=== PATIENT | female | born 1995 | race Caucasian/White ===

== ENCOUNTER 2023-12-27 15:52 | Emergency (ER) | payer OTHER, SELFPAY ==
[2023-12-27 16:16] VITALS: BP 127/82; PULSE 72; RESP 18; TEMP 37.1; O2SAT 100; BMI 21.8
--- NOTE | 2023-12-27 16:36 | CRLHL7_ITS ---
For Patients: As a result of the Century Cures Act, medical imaging exams and procedure reports are released immediately into your electronic medical record. You may view this report before your referring provider. If you have questions, please contact your health care provider. INDICATION: Vaginal bleeding in the setting of . COMPARISON: None available. TECHNIQUE: Grayscale pelvic ultrasound via an endovaginal approach. FINDINGS: Gestational sac and number: 1 Sac size and shape: Oval-shaped. The sac is located in the lower uterine segment posteriorly. No perigestational hemorrhage. MSD is 0.5 cm. Placenta: Not yet developed. Yolk sac: Present. Amniotic fluid: Subjectively normal. No pole is identifiable at this time. US EGA: 5 weeks 2 days US CAROLYNN: 08/26/2024 LMP CAROLYNN: 08/20/2024 Uterus: No significant uterine findings. Right ovary: Normal. Left ovary: Normal. IMPRESSION: Intrauterine gestational sac located in the lower uterine segment without yolk sac or embryonic pole visible at this time. Findings are consistent with an intrauterine of uncertain viability. Serial beta HCG and short interval follow-up ultrasound in 7-14 days are recommended. Dictated by Leonard Fagan MD @ 12/27/2023 6:00:52 PM (Electronically Signed)
--- NOTE | 2023-12-27 18:00 | ED.PREGNANCY ---
HPI - General Time Seen by Provider: 18:00 Date Seen: 12/27/23 Chief complaint: Vaginal Bleeding Stated complaint: 6 week , bleeding (clots), back pain Time Seen by Provider: 12/27/23 17:19 Source: patient, RN notes reviewed and old records reviewed Mode of arrival: ambulatory Limitations: no limitations History of Present Illness HPI Narrative: Wendi is a very pleasant 28-year-old with history of normal who comes to the emergency room today with vaginal bleeding at 6 weeks 1 day of . She notes that this morning after urinating she had some blood when she wiped. Throughout the day she started passing clots. She has a lower pelvic cramping with radiation to her back. She has not had any vomiting lightheadedness chest pain or fevers. Her 1st was uncomplicated. She did receive broke g as she is blood type O negative. She does not know her alan's blood type. She lives in [place] but grew up in the [facility] and thus comes in our to the [facility] for care. Related Data Home Medications ?Medication ?Instructions ?Recorded ?Confirmed 12/27/23 Allergies Allergy/AdvReac Type Severity Reaction Status Date / Time amoxicillin [From Augmentin] Allergy Intermediate Unknown Verified 06/17/23 09:46 clavulanic acid Allergy Intermediate Unknown Verified 06/17/23 09:46 [From Augmentin] cat dander Allergy Unknown Unknown Verified 06/17/23 09:46 house dust Allergy Unknown Unknown Verified 06/17/23 09:46 mold Allergy Unknown Unknown Verified 06/17/23 09:46 ragweed pollen Allergy Unknown Unknown Verified 06/17/23 09:46 Review of Systems Status of ROS: Reports: 6 or more systems reviewed and unremarkable except as noted in History and below [facility] Medical History Anal fissure ?K60.2 - Anal fissure, unspecified (ICD-10) Recurrent vaginitis ?N76.0 - Acute vaginitis (ICD-10) Environmental allergies ?Z91.09 - Other allergy status, other than to drugs and biological substances (ICD-10) Anxiety and depression ?F41.9 - Anxiety disorder, unspecified (ICD-10) ?F32.A - Depression, unspecified (ICD-10) Acne ?L70.9 - Acne, unspecified (ICD-10) Surgical History (normal spontaneous vaginal delivery) ?O80 - Encounter for full-term uncomplicated delivery (ICD-10) History of tonsillectomy and adenoidectomy (1998) ?Z90.89 - Acquired absence of other organs (ICD-10) Family History Maternal Grandmother Colon cancer, Onset Age: 60 Paternal Grandmother Breast cancer, Onset Age: 65 Mother Anxiety disorder Aunt Uterine cancer Social History Narrative: 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 No acute distress. Clearly sad. Heart with regular rate and rhythm and lungs are clear to auscultation. Abdomen is soft nontender. Lower extremities without edema. Moving all extremities. Const: Vital Signs, click to edit/add: Vital Signs - 24 hr 12/27/23 16:16 12/27/23 19:29 Temperature 98.7 F Pulse Rate [Pulse Oximeter] 72 65 Respiratory Rate 18 18 Blood Pressure [Ri ght Upper Arm] 127/82 124/77 Pulse Oximetry 100 100 Oxygen Delivery Me thod Room Air Room Air Documenting provider has reviewed patient's vital signs: yes Course Course ED Course: At this time patient has already had an ultrasound and the gestational sac is located in the lower uterine segment. This is a of uncertain status. Will add CBC, chemistry panel, quantitative hCG to the labs. Plan on talking to OB in regards to [facility] which is currently involved in a eller boyd shortage. Reevaluation(s) Reevaluation #1: I had the pleasure of speaking with Dr. Clement who does suggest RhoGAM. Her this is ordered via pharmacy. Vital Signs Vital signs: Initial Vital Signs Temperature 98.7 F 12/27/23 16:16 Temperature Source Temporal Artery Scan 12/27/23 16:16 Pulse Rate 72 12/27/23 16:16 Respiratory Rate 18 12/27/23 16:16 Blood Pressure 127/82 12/27/23 16:16 Blood Pressure Mean 97 12/27/23 16:16 Blood Pressure Position Sitting 12/27/23 16:16 Pulse Oximetry 100 12/27/23 16:16 Oxygen Delivery Method Room Air 12/27/23 16:16 Vital Signs Temperature 98.7 F 12/27/23 16:16 Pulse Rate 72 12/27/23 16:16 Respiratory Rate 18 12/27/23 16:16 Blood Pressure 127/82 12/27/23 16:16 Pulse Oximetry 100 12/27/23 16:16 Oxygen Delivery Method Room Air 12/27/23 16:16 Temperature 98.7 F 12/27/23 16:16 Pulse Rate 65 12/27/23 19:29 Respiratory Rate 18 12/27/23 19:29 Blood Pressure 124/77 12/27/23 19:29 Pulse Oximetry 100 12/27/23 19:29 Oxygen Delivery Method Room Air 12/27/23 19:29 MDM - OB/Uterine Contractions MDM Narrative Medical decision making narrative: 1. Threatened miscarriage-her at this time gestational sac is located in the in the lower uterine segment. HCG done today which is 2. Disposition-home at this time. Miscarriage may occur. Seek medical attention for significant bleeding, lightheadedness, fever, chest pain and as needed. Follow-up with OBGYN this week for repeat hCG. Return to the emergency room as needed. Addendum: White count elevated 11.47 likely consistent with . Basic panel within normal limits. HCG 405.21. Medical Records Attestation: I reviewed the patient's medical records. Lab Data Attestation: I reviewed the patient's lab results. Labs: Lab Results 12/27/23 Range/Units 18:25 WBC 11.47 H (4.50-11.00) K/uL RBC 4.68 (4.00-5.20) m/uL Hgb 13.2 (12.0-16.0) gm/dL Hct 40.5 (33.0-51.0) % MCV 87 (80-100) fL MCH 28 (26-34) pg MCHC 33 (32-36) gm/dL RDW Coeff of Sher 11.6 (11.5-15.5) % Plt Count 309 (140-440) K/uL Neut % (Auto) 67.1 (42.0-72.0) % Lymph % (Auto) 22.5 (20-44) % [place] % (Auto) 7.2 (0.0-11.0) % Eos % (Auto) 1.6 (0.0-7.0) % Baso % (Auto) 0.7 (0.0-3.0) % Neut # (Auto) 7.70 H (1.7-7.0) K/uL Lymph # (Auto) 2.60 (0.90-2.90) K/uL [place] # (Auto) 0.80 (0.00-0.90) K/UL Eos # (Auto) 0.20 (0.00-0.50) K/uL Baso # (Auto) 0.10 (0.00-0.30) K/uL Abs Immat Gran (auto) 0.10 (0.00-0.30) K/uL Imm/Tot Granulo (auto) 0.9 % Sodium 137 (135-149) mmol/L Potassium 3.8 (3.6-5.1) mmol/L Chloride 101 (96-114) mmol/L Carbon Dioxide 25 (20-32) mmol/L Anion Gap 11 (7-15) mEq/L BUN 15 (5-24) mg/dL Creatinine 0.8 (0.5-1.5) mg/dL Estimated Creat Clear 125.17 Estimated GFR 102 ml/min Glucose 90 (60-115) mg/dL Calcium 9.1 (8.4-10.6) mg/dL HCG, Quant 405.21 mIU/mL Imaging Data US - abdomen: Attestation: I have reviewed the pertinent imaging results. Radiologist's impression: Gestational sac and number: 1 Sac size and shape: Oval-shaped. The sac is located in the lower uterine segment posteriorly. No perigestational hemorrhage. MSD is 0.5 cm. Placenta: Not yet developed. Yolk sac: Present. Amniotic fluid: Subjectively normal. No pole is identifiable at this time. US EGA: 5 weeks 2 days US CAROLYNN: 08/26/2024 LMP CAROLYNN: 08/20/2024 Uterus: No significant uterine findings. Right ovary: Normal. Left ovary: Normal. IMPRESSION: Intrauterine gestational sac located in the lower uterine segment without yolk sac or embryonic pole visible at this time. Findings are consistent with an intrauterine of uncertain viability. Serial beta HCG and short interval follow-up ultrasound in 7-14 days are recommended. Discharge Plan Discharge Clinical Impression: Miscarriage, threatened, early , Rh negative state in antepartum period Patient Disposition: Home, Self-Care Condition: Unchanged Additional Instructions: Seek medical attention for increased bleeding that makes you lightheaded, have a fever, have shortness of breath or is soaking a pad quickly. Follow-up with OBGYN this week for recheck of the hCG. Return to the emergency room as needed. Prescriptions: No Action Follow Up/Referrals: Charanjit Lake MD [Primary Care Provider] - Stand Alone Forms: [employer] Info Instructions
[2023-12-27 19:00] LABS: Basophils Percent Auto 0.7 % (0.0-3.0); Eosinophils Percent Auto 1.6 % (0.0-7.0); Hematocrit 40.5 % (33.0-51.0); Hemoglobin* 13.2 gm/dL (12.0-16.0); Immature Granulocytes Pct Auto 0.9 %; Lymphocytes Percent Auto 22.5 % (20-44); Mean Corpuscular HGB Conc 33 gm/dL (32-36); Mean Corpuscular Hemoglobin 28 pg (26-34); Mean Corpuscular Volume 87 fL (80-100); Monocytes Percent Auto 7.2 % (0.0-11.0); Neutrophils Percent Auto 67.1 % (42.0-72.0); Platelet Count* 309 K/uL (140-440); RDW Coefficient of Variation % 11.6 % (11.5-15.5); Red Blood Count 4.68 m/uL (4.00-5.20); White Blood Count* 11.47 K/uL (4.50-11.00)
[2023-12-27 19:01] LABS: Slide Review Reflex No
[2023-12-27 19:17] LABS: Chloride* 101 mmol/L (96-114); Sodium* 137 mmol/L (135-149)
[2023-12-27 19:18] LABS: Potassium* 3.8 mmol/L (3.6-5.1)
[2023-12-27 19:20] LABS: Creatinine* 0.8 mg/dL (0.5-1.5); Est. Creatinine Clearance* 125.17; Estimated Glomerular Filt Rate 102 ml/min
[2023-12-27 19:21] LABS: Anion Gap 11 mEq/L (7-15); Blood Urea Nitrogen* 15 mg/dL (5-24); Calcium* 9.1 mg/dL (8.4-10.6); Carbon Dioxide* 25 mmol/L (20-32); Glucose* 90 mg/dL (60-115)
[2023-12-27 19:29] VITALS: BP 124/77; PULSE 65; RESP 18; O2SAT 100
== END 2023-12-27 19:31 | disposition home or self-care (01) ==
PROVIDERS: Emergency Provider Family Medicine; PCP Family Medicine
DX: O03.9 Complete or unspecified spontaneous abortion without complication (principal)
CPT/HCPCS: 36415; 76817; 80048; 84702; 85025; 99284; J2791

== ENCOUNTER 2023-12-29 13:35 | Outpatient (CLI) | payer OTHER, SELFPAY | END 2023-12-29 13:36 | disposition home or self-care (01) | LOC: NFLDREF 12-30 08:34 | PROVIDERS: PCP Family Medicine; Referring Provider Family Medicine; Visit Provider Advanced Practice Midwife | DX: O20.0 Threatened abortion (principal) | CPT/HCPCS: 84702 ==

== ENCOUNTER 2024-02-22 10:47 | Emergency (ER) | payer OTHER, SELFPAY ==
[2024-02-22 10:54] VITALS: BP 133/80; PULSE 89; RESP 18; TEMP 36.4; O2SAT 100; BMI 22.4
--- NOTE | 2024-02-22 11:03 | ED.GENADULT ---
HPI - General Adult General Date Seen: 02/22/24 Chief complaint: Vaginal Bleeding Stated complaint: Potential Early complication (4-6 weeks? Time Seen by Provider: 02/22/24 11:02 History of Present Illness HPI narrative: 28-year-old female presents to the ER today with vaginal bleeding. She is blood type O negative and received RhoGAM with her 1st . Was seen here in the ER on December 26 for vaginal bleeding and clotting at 6 weeks gestation. Ultrasound showed gestational sac and lower uterine segment, suspicious for incomplete A/B. Followed up with her obstetrics/field advisor, on 12/28 with confirmed miscarriage rule . She and her fiance have been actively trying to conceive another baby since her miscarriage in the end of November. She has not really had a normal menstrual cycle since that miscarriage. She began to have symptoms of a few weeks ago with breast tenderness and mild nausea. She had a positive test 10 days ago on 02/12. She has been having some light brown spotting after intercourse 2 nights ago. Since then she said on ongoing light brown sometimes reddish colored spotting. She noticed a little bit of patches of tissue E this morning and yesterday. She is also having some mild right lower quadrant lower abdominal cramping. No pain radiating through to her flank. No left-sided pain. No fever chills. Urination has been normal. Bowel movements have been normal. Related Data Home Medications ?Medication ?Instructions ?Recorded ?Confirmed vit 168-iron 27 mg-folic cap PO 12/29/23 12/29/23 acid 800 mcg-omega3 235 mg capsule (One-A-Day -1) Allergies Allergy/AdvReac Type Severity Reaction Status Date / Time amoxicillin (From Augmentin) Allergy Intermediate Unknown Verified 12/29/23 13:01 clavulanic acid (From Allergy Intermediate Unknown Verified 12/29/23 13:01 Augmentin) cat dander Allergy Unknown Unknown Verified 12/29/23 13:01 house dust Allergy Unknown Unknown Verified 12/29/23 13:01 mold Allergy Unknown Unknown Verified 12/29/23 13:01 ragweed pollen Allergy Unknown Unknown Verified 12/29/23 13:01 [facility] Medical History Anal fissure ?K60.2 - Anal fissure, unspecified (ICD-10) Recurrent vaginitis ?N76.0 - Acute vaginitis (ICD-10) Environmental allergies ?Z91.09 - Other allergy status, other than to drugs and biological substances (ICD-10) Anxiety and depression ?F41.9 - Anxiety disorder, unspecified (ICD-10) ?F32.A - Depression, unspecified (ICD-10) Acne ?L70.9 - Acne, unspecified (ICD-10) Surgical History (normal spontaneous vaginal delivery) ?O80 - Encounter for full-term uncomplicated delivery (ICD-10) History of tonsillectomy and adenoidectomy (1998) ?Z90.89 - Acquired absence of other organs (ICD-10) Family History Maternal Grandmother Colon cancer, Onset Age: 60 Paternal Grandmother Breast cancer, Onset Age: 65 Mother Anxiety disorder Aunt Uterine cancer Social History Narrative: 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 Alert. Conversant. Non toxic. HENT: Head: Atraumatic. Nose: Nose normal. Mouth/Throat: Oral mucosa is clear and moist. no trismus. Pharynx normal. Tonsils symmetric. No tonsillar enlargement, erythema, or exudate. Eyes: Conjunctivae normal. EOM normal. Pupils equal, round, and reactive to light. No scleral icterus. Neck: Normal range of motion. Neck supple. No tracheal deviation present. Cardiovascular: Normal rate, regular rhythm. No gallop. No friction rub. No murmur heard. Symmetric radial artery pulses Pulmonary/Chest: Effort normal. No stridor. No respiratory distress. No wheezes. No rales. No rhonchi . No tenderness. Abdominal: Soft. Bowel sounds normal. No distension. No mass. Although she reported some right-sided cramping she has not displaying any exam tenderness. No rebound. No guarding. Pelvic: Performed with female supervisor nuclear medicine. Normal external genitalia. Normal vaginal mucosa. Cervix closed. Small amount of dark red blood in the vaginal vault. No active bleeding.. No cervicitis Musculoskeletal: RUE: Normal range of motion. No tenderness. No deformity LUE: Normal range of motion. No tenderness. No deformity RLE: Normal range of motion. No edema. No tenderness. No deformity LLE: Normal range of motion. No edema. No tenderness. No deformity Neurological: Alert and oriented to person, place, and time. Normal strength. CN II-VII intact. No sensory deficit. GCS eye subscore is 4. GCS verbal subscore is 5. GCS motor subscore is 6. Normal coordination Skin: Skin is warm and dry. No rash noted. No pallor. Normal capillary refill. Psychiatric: Normal mood. Normal affect. Const: Vital Signs, click to edit/add: Vital Signs - 24 hr 02/22/24 10:54 02/22/24 13:26 Temperature 97.6 F Pulse Rate [Pulse Oximeter] 89 68 Respiratory Rate 18 16 Blood Pressure [Ri t Upper Arm] 133/80 111/78 Pulse Oximetry 100 100 Oxygen Delivery Me thod Room Air Room Air Course Vital Signs Vital signs: Initial Vital Signs Temperature 97.6 F 02/22/24 10:54 Temperature Source Temporal Artery Scan 02/22/24 10:54 Pulse Rate 89 02/22/24 10:54 Respiratory Rate 18 02/22/24 10:54 Blood Pressure 133/80 02/22/24 10:54 Blood Pressure Mean 97 02/22/24 10:54 Pulse Oximetry 100 02/22/24 10:54 Oxygen Delivery Method Room Air 02/22/24 10:54 Vital Signs Temperature 97.6 F 02/22/24 10:54 Pulse Rate 89 02/22/24 10:54 Respiratory Rate 18 02/22/24 10:54 Blood Pressure 133/80 02/22/24 10:54 Pulse Oximetry 100 02/22/24 10:54 Oxygen Delivery Method Room Air 02/22/24 10:54 Temperature 97.6 F 02/22/24 10:54 Pulse Rate 68 02/22/24 13:26 Respiratory Rate 16 02/22/24 13:26 Blood Pressure 111/78 02/22/24 13:26 Pulse Oximetry 100 02/22/24 13:26 Oxygen Delivery Method Room Air 02/22/24 13:26 Medical Decision Making MDM Narrative Medical decision making narrative: This female patient presents for evaluation of vaginal spotting and pelvic cramping.. I considered a broad differential including ectopic , ovarian cyst, UTI, pyelonephritis, subchorionic hemorrhage, uterine bleeding, active miscarriage, constipation, etc. Non gynecologic causes considered included , appendicitis, cholecystitis, volvulus, intraabdominal abscess, among others. In this patient, there are no signs of serious etiologies of abdominal pain. She did have a small amount of vaginal discharge. Vaginitis panel is negative. She has no concern for STI. The workup here suggests threatened miscarriage. Fortunately ultrasound confirms a viable IUP with heartbeat. There is no subchorionic hemorrhage. At this point, patient is hemodynamically stable, hemoglobin is reassuring, and bleeding is not predicted to become life threatening. She is Rh negative. She had RhoGAM about 9 weeks ago here in the ER. In discussion with OB they think she would be cover for 12 weeks and so therefore additional RhoGAM not indicated at this time. Plan is home, close follow-up with OB, threatened miscarriage precautions, and return to ED for worsening pain, heavy vaginal bleeding (more than 1 pad soaked every hour). Questions were answered. Lab Data Labs: Lab Results 02/22/24 02/22/24 02/22/24 Range/Units 11:06 11:42 15:20 WBC 7.94 (4.50-11.00) K/uL RBC 4.72 (4.00-5.20) m/uL Hgb 13.4 (12.0-16.0) gm/dL Hct 40.8 (33.0-51.0) % MCV 86 (80-100) fL MCH 28 (26-34) pg MCHC 33 (32-36) gm/dL RDW Coeff of Sher 11.8 (11.5-15.5) % Plt Count 294 (140-440) K/uL Neut % (Auto) 61.3 (42.0-72.0) % Lymph % (Auto) 27.8 (20-44) % [place] % (Auto) 8.4 (0.0-11.0) % Eos % (Auto) 1.9 (0.0-7.0) % Baso % (Auto) 0.6 (0.0-3.0) % Neut # (Auto) 4.86 (1.7-7.0) K/uL Lymph # (Auto) 2.21 (0.90-2.90) K/uL [place] # (Auto) 0.70 (0.00-0.90) K/UL Eos # (Auto) 0.15 (0.00-0.50) K/uL Baso # (Auto) 0.05 (0.00-0.30) K/uL Abs Immat Gran (auto) 0.00 (0.00-0.30) K/uL Imm/Tot Granulo (auto) 0.0 % HCG, Quant 6303.70 mIU/mL Urine Color Yellow (Yellow) Urine Appearance Clear (Clear) Urine pH 6.0 (5.0-8.5) Ur Specific [place] 1.010 (1.000-1.030) Urine Protein Negative (Negative) Urine Glucose (UA) Negative (Negative) Urine Ketones Negative (Negative) Urine Blood Trace-intact A (Negative) Urine Nitrite Negative (Negative) Urine Bilirubin Negative (Negative) Urine Urobilinogen 0.2 (0.2-1.0) Ur Leukocyte Esterase Negative (Negative) Urine RBC 0-2 (0-2) Urine WBC 0-2 (0-5) Ur Squamous Epith Cells Few (None-Few) Urine Bacteria None (None) Urine HCG, Qual POSITIVE H (Negative) Vaginal Bacterial Vaginosis Negative (Negative) Vaginal Annemarie species NOT DETECTED (No Detected) Vag C. glabrata/krusei NOT DETECTED (No Detected) Vag T. vaginalis NOT DETECTED (No Detected) Imaging Data US Pelvis: Attestation: I have reviewed the pertinent imaging results. Radiologist's impression: IMPRESSION: Martinez viable intrauterine with size and dates as above. Discharge Plan Discharge Clinical Impression: Threatened miscarriage Instructions: Threatened Miscarriage (ED) Additional Instructions: As we discussed, please come back to the ER right away if you have any concerns especially heavier bleeding, worsening cramping, lightheadedness or dizziness, fever, or any other problems. Please call the OB clinic this afternoon or tomorrow morning to schedule an ER follow-up appointment with your field advisor for the OB doctor for within 1 week. Until your checkup, avoid intercourse or putting tampons or other objects in your vagina. Light activities are okay but avoid strenuous exercise or heavy lifting. Prescriptions: No Action One-A-Day -1 27 mg iron- 800 mcg-235 mg capsule PO Follow Up/Referrals: Charanjit Lake MD [Primary Care Provider] - Stand Alone Forms: [employer] Info Instructions
[2024-02-22 11:11] LABS: Appearance Urine Clear (Clear); Bilirubin Urine Negative (Negative); Blood Urine Trace-intact (Negative); Color Urine Yellow (Yellow); Glucose Urine Negative (Negative); Ketones Urine Negative (Negative); Leukocyte Esterase Urine Negative (Negative); Nitrite Urine Negative (Negative); Protein Urine Negative (Negative); Urobilinogen Urine 0.2 (0.2-1.0)
[2024-02-22 11:13] LABS: Ur HCG Qualitative* POSITIVE (Negative)
--- NOTE | 2024-02-22 11:21 | CRLHL7_ITS ---
For Patients: As a result of the Century Cures Act, medical imaging exams and procedure reports are released immediately into your electronic medical record. You may view this report before your referring provider. If you have questions, please contact your health care provider. INDICATION: Bleeding in the setting of . COMPARISON: None available. Reference made to the report of a prior examination dated 12/27/2023. TECHNIQUE: Endovaginal spectral Doppler ultrasound. FINDINGS: Gestational sac and number: 1 Sac size and shape: Normal shape. No perigestational hemorrhage. Placenta: Not yet developed. Yolk sac: Present. Amniotic fluid: Subjectively normal. heart rate: 131bpm. CRL: 1.0cm. US EGA: 7 weeks 1 day US CAROLYNN: 10/09/2024 LMP CAROLYNN: Not provided. Uterus: No significant uterine findings. Right ovary: 1.3 cm corpus luteum. Left ovary: Normal. Other: Trace anechoic free fluid in the pouch of [place]. IMPRESSION: [place] viable intrauterine with size and dates as above. Dictated by Leonard Fagan MD @ 02/22/2024 12:28:41 PM (Electronically Signed)
[2024-02-22 11:35] LABS: RBC Urine 0-2 (0-2); Squamous Epithelial Cell Urine Few (None-Few); WBC Urine 0-2 (0-5)
[2024-02-22 11:51] LABS: Basophils Absolute Auto 0.05 K/uL (0.00-0.30); Basophils Percent Auto 0.6 % (0.0-3.0); Eosinophils Absolute Auto 0.15 K/uL (0.00-0.50); Eosinophils Percent Auto 1.9 % (0.0-7.0); Hematocrit* 40.8 % (33.0-51.0); Hemoglobin* 13.4 gm/dL (12.0-16.0); Lymphocytes Absolute Auto 2.21 K/uL (0.90-2.90); Lymphocytes Percent Auto 27.8 % (20-44); Mean Corpuscular HGB Conc 33 gm/dL (32-36); Mean Corpuscular Hemoglobin 28 pg (26-34); Mean Corpuscular Volume 86 fL (80-100); Monocytes Percent Auto 8.4 % (0.0-11.0); Neutrophils Absolute Auto 4.86 K/uL (1.7-7.0); Neutrophils Percent Auto 61.3 % (42.0-72.0); Platelet Count* 294 K/uL (140-440); RDW Coefficient of Variation % 11.8 % (11.5-15.5); Red Blood Count* 4.72 m/uL (4.00-5.20); Slide Review Reflex No; White Blood Count* 7.94 K/uL (4.50-11.00)
[2024-02-22 13:26] VITALS: BP 111/78; PULSE 68; RESP 16; O2SAT 100
[2024-02-22 16:29] LABS: Bacterial Vaginosis* Negative (Negative); Candida glab/krus NOT DETECTED (No Detected); Candida species NOT DETECTED (No Detected); Trichomonas vaginalis NOT DETECTED (No Detected)
== END 2024-02-22 15:36 | disposition home or self-care (01) ==
PROVIDERS: Emergency Provider Emergency Medicine; PCP Family Medicine
DX: O20.0 Threatened abortion (principal); R10.31 Right lower quadrant pain; N89.8 Other specified noninflammatory disorders of vagina
CPT/HCPCS: 36415; 76817; 81001; 81025; 81513; 84702; 85025; 87481; 87661; 93976; 99283; 99284

== ENCOUNTER 2024-02-28 13:44 | Outpatient (CLI) | payer OTHER, SELFPAY ==
--- NOTE | 2024-02-28 14:00 | CRLHL7_ITS ---
For Patients: As a result of the Century Cures Act, medical imaging exams and procedure reports are released immediately into your electronic medical record. You may view this report before your referring provider. If you have questions, please contact your health care provider. INDICATION: Vaginal bleeding in the setting of . COMPARISON: 02/22/2024 TECHNIQUE: Endovaginal grayscale and color Doppler ultrasound of the pelvis. FINDINGS: The uterus is empty. The uterus measures 5.9 x 4.3 x 8.7 cm. Endometrial stripe thickness is uniform and measures 7 mm. Unremarkable left ovary which measures 1.6 x 2 x 2.9 cm. The right ovary is not seen. No significant pelvic ascites. IMPRESSION: Findings consistent with a completed spontaneous . Dictated by Leonard Fagan MD @ 02/28/2024 2:54:18 PM (Electronically Signed)
== END 2024-02-28 13:45 | disposition home or self-care (01) ==
PROVIDERS: PCP Family Medicine; Visit Provider Advanced Practice Midwife
DX: O20.9 Hemorrhage in early pregnancy, unspecified (principal); O02.1 Missed abortion
CPT/HCPCS: 76817; 84443; 84702

== ENCOUNTER 2024-06-20 12:11 | Outpatient (CLI) | payer OTHER, SELFPAY ==
--- NOTE | 2024-06-20 12:15 | CRLHL7_ITS ---
For Patients: As a result of the Cures Act, medical imaging exams and procedure reports are released immediately into your electronic medical record. You may view this report before your referring provider. If you have questions, please contact your health care provider. OBSTETRICAL ULTRASOUND TRANSVAGINAL, 06/20/2024 CLINICAL INDICATION: Ultrasound for dates and viability. LMP: 04/21/2024 CAROLYNN by LMP: 01/26/2025 Gestational age: 8 weeks 4 days Previous ultrasound: No TECHNIQUE: Transvaginal 1st trimester obstetrical ultrasound. Pryor-scale, color and M-mode Doppler images. FINDINGS: CRL: 1.9 cm, 8 weeks 3 days; CAROLYNN 01/27/2025 heart rate: 176 BPM Gestational sac: 3.7 cm, appears within normal limits Yolk sac: 2.8 mm, appears within normal limits Right ovary: Within normal limits; 3.2 x 1.5 x 2.2 cm Left ovary: Within normal limits; 3.8 x 2.1 x .23 cm, corpus luteum 2.3 x 1.3 x 1.9 cm. IMPRESSION: 1. Single viable intrauterine . ANDRZEJ VICTOR M.D. Body/Diagnostic Radiologist [email or web address] Transcribed: 12:[address]/Dictated by: Andrzej Victor MD @ 06/21/2024 11:58:[address]/Dictated by: Andrzej Victor MD @ 06/21/2024 11:58:00 AM (Electronically Signed)
== END 2024-06-20 12:12 | disposition home or self-care (01) ==
LOC: US 12:12
PROVIDERS: PCP Family Medicine; Visit Provider Advanced Practice Midwife
DX: Z34.91 Encounter for supervision of normal pregnancy, unspecified, first trimester (principal); Z3A.08 8 weeks gestation of pregnancy
CPT/HCPCS: 76817; 83021; 86703; 86706; 86803; 86850; 86900; 86901; 87086; 87340

== ENCOUNTER 2024-06-20 13:13 | Outpatient (CLI) | payer OTHER, SELFPAY | END 2024-06-20 13:14 | disposition home or self-care (01) | PROVIDERS: PCP Family Medicine; Visit Provider Advanced Practice Midwife | DX: Z34.91 Encounter for supervision of normal pregnancy, unspecified, first trimester (principal); Z3A.08 8 weeks gestation of pregnancy | CPT/HCPCS: 83020; 83021; 85660; 86592; 86703; 86704; 86706; 86762; 86787; 86803; 86850; 86900; 86901; 87086; 87340 ==

== ENCOUNTER 2024-09-15 09:14 | Outpatient (CLI) | payer BC, SELFPAY ==
--- NOTE | 2024-09-15 09:15 | CRLHL7_ITS ---
For Patients: As a result of the Century Cures Act, medical imaging exams and procedure reports are released immediately into your electronic medical record. You may view this report before your referring provider. If you have questions, please contact your health care provider. OB ULTRASOUND SURVEY LMP: 04/21/2024. CAROLYNN by LMP: 01/26/2025. GA: 21 w, 0 d. INDICATION: Supervision of normal . TECHNIQUE: Real time grayscale imaging of the fetus was performed. Evaluate anatomy. Transabdominal. position: Multiple positions. Vertex, breech, transverse head to maternal left. Cervix: Visualized. Technique: Transabdominal. Length of closed cervix: 5.5 cm. Placenta/cord: Posterior. Technique: Transabdominal. Placenta tip to internal OS: 3.3 cm. Umbilical Cord: 3-vessel cord. Placenta insertion: Central. Amniotic Fluid: 4.8 cm SDP (greater than/equal to: 2- less than 8 cm). SURVEY: Observed Structures. Calvarium/Spine: Cerebellum: 2.4 cm, 23 w 2 d. Cisterna Magna: 3.4 mm. Nuchal Fold: 4.8 mm. Lateral Ventricle: 4.8 mm. CSP: Yes. Midline Falx: Yes. Choroid Plexus: Yes. Spine: Yes. Abdomen: Stomach: Yes. Abd Cord Insertion: Yes. Urinary Bladder: Yes. Kidneys: Yes. Diaphragm: Yes. Face: Nose/lips: Yes. Orbital view: Yes. Profile: Yes. Limbs: Upper Extremities: Yes. Lower Extremities: Yes. Hands: Yes. Feet: Yes. Vascular: 4-Chamber Heart: Yes. LVOT: Yes. RVOT: Yes. 3VV: Yes. 3VTV: Yes. BPD: 4.9 cm. 20 w, 5 d, 36 percent. HC: 18.3 cm. 20 w, 5 d, 27 percent. AC: 17.2 cm. 22 w, 1 d, 79 percent. FL: 3.3 cm. 20 w, 3 d, 21 percent. FL/AC ratio: 19.34 percent. HC/AC ratio: 1.07. heart rate: 163 bpm. age by this US: 21 w, 3 d. CAROLYNN by this US: 01/23/2025. EFW: 410.52 g. Weight: 0 lbs, 14 oz. Percentile by CAROLYNN: 59 percent. IMPRESSION: 1. Normal anatomic survey. 2. Concordance of clinical and sonographic dating. 3. Placental shirley is present which measures 6.3 x 1.6 x 2.0 cm, separate from the placental cord insertion. Charanjit Gunter M.D. Diagnostic Radiologist [email or web address] [email or web address]/Dictated by: Charanjit Gunter MD @ 09/15/2024 10:24:00 AM (Electronically Signed)
== END 2024-09-15 09:15 | disposition home or self-care (01) ==
LOC: US 09:15
PROVIDERS: PCP Family Medicine; Visit Provider Advanced Practice Midwife
DX: Z34.92 Encounter for supervision of normal pregnancy, unspecified, second trimester (principal); Z3A.21 21 weeks gestation of pregnancy
CPT/HCPCS: 76805

== ENCOUNTER 2024-09-30 10:54 | Outpatient (CLI) | payer OTHER, BC, SELFPAY ==
--- OUTSIDE RECORDS SUMMARY | 2024-09-25 09:56 | XMS_ITS | Encounter Summary ---
Author Organization [place] Address [address] [place] [address] Care Team Providers Care Enrober Name Role Phone Charanjit Lake MD Primary Care Provider [phone] Reason for Referral * Diagnostic Imaging Ultrasound (Routine) - Pending Review Specialty Diagnoses / Procedures Referred By Edwin t Referred To Contact Radiology. Diagnoses related condition, antepartum Procedures [facility] US Comprehensive Single Alberto Moyer APRN [facility] [address] [place] [address] Phone: tel: fax: Referral ID Status Reason Start Date Expiration Date V isits Requested Visits Authorized [id number] Pending Review 09/18/2024 09/18/2025 1 1 Reason for Visit * Diagnostic Imaging Ultrasound (Routine) - Pending Review Specialty Diagnoses / Procedures [facility] Referred To Contact Radiology. Diagnoses related condition, antepartum Procedures [facility] US Comprehensive Single Alberto Moyer APRN [facility] [address] [place] [address] Phone: tel: fax: Referral ID Status Reason Start Date Expiration Date V isits Requested Visits Authorized [id number] Pending Review 09/18/2024 09/18/2025 1 1 Encounter Details Date Type Department Care Team (Latest Contact Info) Description 09/25/2024 9:56 AM CDT - 09/25/2024 11:59 PM CDT Hospital Encounter [facility] [place] [address] [facility] [address] [place] [address] Alberto Moyer APRN [facility] [address] [place] [address] Joleen Traylor MD [address] [place], [place] [address] related condition, antepartum Discharge Disposition: Home or Self Care Social History Tobacco Use Types Packs/Day Years Used Date Smoking Tobacco: Never Assessed Estimated Date of Delivery Comme nts Yes 01/26/2025 Based on last me nstrual period of 04/21/2024 Sex and Gender Information Value Date Recorded Sex Assigned at Not on file Legal Sex Female 3:19 PM CDT Gender Identity Not on file Sexual Orientation Not on file documented as of this encounter Plan of Treatment Not on file documented as of this encounter Procedures Procedure Name Priority Date/Time Associated Diagnosis Comments [facility] COMPREHENSIVE SINGLE Routine 09/25/2024 10:49 AM CDT related condition, antepartum documented in this encounter Results * [facility] Comprehensive Single (09/25/2024 10:49 AM CDT) Anatomical Region Laterality Modality Ultrasound 09/25/2024 10:0 8 AM CDT Impressions 09/25/2024 1:42 PM CDT IMPRESSION ----- 1. Martinez at 22w 3d gestational age. 2. No anomalies commonly detected by ultrasound were identified in the detailed anatomic survey within the limits of ultrasound. 3. Growth parameters and estimated weight were consistent with gestational age predicted by assigned CAROLYNN. 4. The amniotic fluid volume appeared normal. 5. On transabdominal imaging the cervix appeared long and closed. 6. Posterior placenta appears normal for gestational age. No placenta lakes seen Narrative 09/25/2024 1:42 PM CDT Comprehensive ----- Pat. Name: WENDI PALMA Study Date: 09/25/2024 10:08am Pat. 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 View: Sufficient ----- Martinez . Number of fetuses: 1 DATING ----- Date Details Gest. age CAROLYNN LMP 04/21/2024 22 w + 3 d 01/26/2025 Previous U/S 06/20/2024 GA, GA 8 w + 3 d 22 w + 2 d 01/27/2025 U/S 09/25/2024 based upon AC, BPD, Femur, HC 22 w + 4 d 01/25/2025 Assigned dating based on the LMP, selected on 09/25/2024 22 w + 3 d 01/26/2025 GENERAL EVALUATION ----- Cardiac activity present. FHR 144 bpm. movements: present. Presentation: Variable Placenta: Posterior, No Previa, > 2 cm from internal os Umbilical cord: 3 vessel cord Amniotic fluid: Amount of AF: normal. MVP 3.3 cm BIOMETRY ----- BPD 51.3 mm 21w 4d Hadlock OFD 77.2 mm 23w 4d Nicolaides HC 207.0 mm 22w 6d Hadlock Cerebellum tr 25.5 mm 23w 4d Nicolaides AC 191.3 mm 23w 6d 84% Hadlock Femur 37.7 mm 22w 0d Hadlock Humerus 35.7 mm 22w 3d Hilario Weight Calculation: EFW 550 g 69% Hadlock EFW (lb,oz) 1 lb 3 oz EFW by Hadlock ([id number]) Head / Face / Neck Biometry: Youth Court Judge 4.9 mm CM 4.7 mm Nasal bone 6.6 mm ANATOMY ----- The following structures appear normal: Head / Neck Cranium. Head size. Head shape. Lateral ventricles. Choroid plexus. Midline falx. Cavum septi pellucidi. Cerebellum. Cisterna magna. Parenchyma. Thalami. Vermis. Neck. Face Lips. Profile. Nose. Maxilla. Mandible. Orbits. Lens. Heart / Thorax 4-chamber view. RVOT view. LVOT view. 3-vessel view. 4-fbzglm-ngynbep view. Situs. Aortic arch view. Bicaval view. Ductal arch view. Superior vena cava. Inferior vena cava. Cardiac position. Cardiac size. Cardiac rhythm. Right lung. Left lung. Diaphragm. Abdomen Abdom. wall. Cord insertion. Stomach. Kidneys. Bladder. Liver. Bowel. Genitals. Spine Cervical spine. Thoracic spine. Lumbar spine. Sacral spine. Extremities / Skeleton Arms. Right arm. Right hand. Left arm. Left hand. Legs. Right leg. Right foot. Left leg. Left foot. MATERNAL STRUCTURES ----- Cervix Visualized Appearance: Appears Closed Cervical length 45.5 mm Right Ovary Visualized Left Ovary Visualized RECOMMENDATION ----- Thank-you for referring your patient for a comprehensive ultrasound. I discussed the findings on today's ultrasound with the patient. She has not had genetic screening this , Further ultrasound studies as clinically indicated. Return to primary provider for continued care. If you have questions regarding today's evaluation or if we can be of further service, please contact the [facility]. anomalies may be present but not detected I spent a total of 15 minutes (excluding the ultrasound interpretation) on the date of this encounter including preparing to see the patient (reviewing medical records/tests), in direct arwm-qn-qgth contact with the patient during the visit counseling and discussing the plan of care and documenting the visit in the electronic medical record. Procedure Note Joleen Traylor MD - 09/25/2024 Comprehensive ----- Pat. Name: WENDI PALMA Study Date: 09/25/2024 10:08am Pat. 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 View: Sufficient ----- Martinez . Number of fetuses: 1 DATING ----- DateDetailsGest. age CAROLYNN LMP w + 3 d 01/26/2025 Previous U/S 06/20/2024 GA, GA8 w + 3 d22 w + 2 d 01/27/2025 U/S 09/25/2024ased upon AC, BPD, Femur, HC22 w + 4 d 01/25/2025 Assigned dating based on the LMP, selected on w + 3 d 01/26/2025 GENERAL EVALUATION ----- Cardiac activity present. FHR 144 bpm. movements: present.Presentation: Variable Placenta: Posterior, No Previa, > 2 cm from internal os Umbilical cord: 3 vessel cord Amniotic fluid: Amount of AF: normal. MVP 3.3 cm BIOMETRY ----- BPD 51.3mm 21w 4dHadlock OFD 77.2mm 23w 4dNicolaides HC 207.0mm 22w 6dHadlock Cerebellum tr 25.5mm 23w 4dNicolaides AC 191.3mm 23w 6d 84%Hadlock Femur 37.7mm 22w 0dHadlock Humerus 35.7mm 22w 3dJeanty Weight Calculation: EFW 550g 69%Hadlock EFW (lb,oz) 1 lb 3oz EFW by Hadlock([id number]) Head / Face / Neck Biometry: Youth Court Judge 4.9mm CM 4.7mm Nasal bone 6.6mm ANATOMY ----- The following structures appear normal: Head / Neck Cranium. Head size. Head shape.Lateral ventricles. Choroid plexus. Midline falx. Cavum septi pellucidi.Cerebellum. Cisterna magna. Parenchyma. Thalami. Vermis. Neck. Face Lips. Profile. Nose. Maxilla.Mandible. Orbits. Lens. Heart / Thorax 4-chamber view. RVOT view. LVOT view.3-vessel view. 8-bvlitt-yiuukai view. Situs. Aortic arch view. Bicavalview. Ductal arch view. Superior vena cava. Inferior vena cava.Cardiac position. Cardiac size. Cardiac rhythm. Right lung. Left lung.Diaphragm. Abdomen Abdom. wall. Cord insertion. Stomach.Kidneys. Bladder. Liver. Bowel. Genitals. Spine Cervical spine. Thoracic spine.Lumbar spine. Sacral spine. Extremities / Skeleton Arms. Right arm. Right hand. Left arm.Left hand. Legs. Right leg. Right foot. Left leg. Left foot. MATERNAL STRUCTURES ----- Cervix Visualized Appearance: Appears Closed Cervical length 45.5 mm Right Ovary Visualized Left Ovary Visualized RECOMMENDATION ----- Thank-you for referring your patient for a comprehensive ultrasound. I discussed the findings on today's ultrasound with the patient. She hasnot had genetic screening this , Further ultrasound studies as clinically indicated. Return to primary provider for continued care. If you have questions regarding today's evaluation or if we can be offurther service, please contact the [facility] Center. anomalies may be present but not detected I spent a total of 15 minutes (excluding the ultrasound interpretation) onthe date of this encounter including preparing to see the patient(reviewing medical records/tests), in direct rujy-vk-bttg contact with the patient during the visitcounseling and discussing the plan of care and documenting the visit inthe electronic medical record. IMPRESSION ----- 1. Martinez at 22w 3d gestational age. 2. No anomalies commonly detected by ultrasound were identified inthe detailed anatomic survey within the limits of prenatalultrasound. 3. Growth parameters and estimated weight were consistent withgestational age predicted by assigned CAROLYNN. 4. The amniotic fluid volume appeared normal. 5. On transabdominal imaging the cervix appeared long and closed. 6. Posterior placenta appears normal for gestational age. No placentalakes seen us Alberto Moyer APRN CNM [facility] ORDERABLES Edit ed Result - Final documented in this encounter Visit Diagnoses Diagnosis related condition, antepartum documented in this encounter Care Teams Enrober Relationship Specialty Start Date End Date Charanjit Lake MD [facility] [address] [place] [address] PCP - General Family Medicine 09/15/24 documented as of this encounter
--- OUTSIDE RECORDS SUMMARY | 2024-09-25 10:45 | XMS_ITS | Encounter Summary ---
Author Organization [place] Address [facility] [place] [address] Care Team Providers Care Triple Valve Tester Name Role Phone Charanjit Lake MD Primary Care Provider + [phone] Reason for Visit * Reason Comments Ultrasound L2- Placental [facility] US Encounter Details Date Type Department Care Team (Late st Contact Info) Description 09/25/2024 10:45 AM CDT Office Visit [facility] [place] [address] [facility] [facility] [address] [place] [address] Alberto Moyer APRN [facility] [address] [place] [address] Joleen Traylor MD [address] [place], [place] [address] Suspected problem with placenta not found (Primary Dx); Screening, , for anatomic survey Social History Tobacco Use Types Packs/Day Years Used Date Smoking Tobacco: Never Assessed Estimated Date of Delivery Comme nts Yes 01/26/2025 Based on last me nstrual period of 04/21/2024 Sex and Gender Information Value Date Recorded Sex Assigned at Not on file Legal Sex Female 3:19 PM CDT Gender Identity Not on file Sexual Orientation Not on file documented as of this encounter Progress Notes * Joleen Traylor MD - 09/25/2024 10:45 AM CDT Please see Imaging tab under Chart Review for details of today's visit. Jloeen Traylor MD documented in this encounter Nursing Notes * Lennie Cano RN - 09/25/2024 10:45 AM CDT Patient here for L2 Patient denies pain, contractions, leaking of fluid, or bleeding. SBAR given to FRANK COULTER, see their note in Epic. documented in this encounter Plan of Treatment Not on file documented as of this encounter Visit Diagnoses Diagnosis Suspected problem with placenta not found- Primary Suspected placental problem not found Screening, , for anatomic survey Encounter for anatomic survey documented in this encounter Care Teams Triple Valve Tester Relationship Specialty Start Date End Date Charanjit Lake MD [facility] [address]. [place] [address] PCP - General Family Medicine 09/15/24 documented as of this encounter
--- OUTSIDE RECORDS SUMMARY | 2024-09-30 10:55 | XMS_ITS | Encounter Summary ---
Author Organization [place] Address [address] [place] [address] Care Team Providers Care Content Analyst Name Role Phone Charanjit Lake MD Primary Care Provider [phone] Reason for Referral * Diagnostic Imaging Ultrasound (Routine) - Pending Review Specialty Diagnoses / Procedures Referred By Contac t Referred To Contact Radiology. Diagnoses related condition, antepartum Procedures [facility] US Comprehensive Single Soraida Moyer [facility]N [facility] [address] [place] [address] Phone: tel: fax: Referral ID Status Reason Start Date Expiration Date V isits Requested Visits Authorized [id number] Pending Review 09/18/2024 09/18/2025 1 1 * Consultation (Routine: Next available opening) - Pending Review Specialty Diagnoses / Procedures Referred By Contac t Referred To Contact Diagnoses related condition, antepartum Soraida Moyer APRN [facility] [address] [place] [address] Phone: tel: fax: [facility] [place] [address] [place] [address] Phone: tel: fax: Referral ID Status Reason Start Date Expiration Date V isits Requested Visits Authorized [id number] Pending Review 09/18/2024 09/18/2025 1 1 Question Answer Preferred Location: [facility] [place] Working Due Date: 01/26/2025 US Ordering Instructions: If US ONLY is requested, select appropriate US Order and DO NOT order MFM Consult. Reason for Referral: Ultrasound Ultrasound - Includes Interpretation/Recommendations (*indicates inclusion of genetic counseling): Comprehensive US (>= 18w0d GA) - malformation of placenta Indication (* indicates inclusion of genetic counseling): Other (enter details in Comments) - malformation of placenta Comments There is no height or weight on file to calculate BMI. >> Patient may proceed with recommendations for further testing as directed by the Maternal Medicine Specialist >> >> If requesting Echo: MFM will determine appropriate location for exam due to indication. Please be aware that coverage of these services is subject to the terms and limitations of your health insurance plan. Call member services at your health plan with any benefit or coverage questions. Encounter Details Date Type Department Care Team (Late st Contact Info) Description 09/18/2024 Transcribe Orders [facility] [place] [address] [place] [address] Soraida Moyer APRN CNM [facility] [address] [place] [address] related condition, antepartum (Primary Dx) Social History Tobacco Use Types Packs/Day Years [...] as of this encounter Plan of Treatment Scheduled Referrals Name Type Priority Associated Diagnoses Orde r Schedule [facility] Med Ctr Referral - Referral Routine: Next available opening related condition, antepartum Expected: 09/18/2024 (Approximate), Expires: 03/17/2025 documented as of this encounter Results * [facility] US Comprehensive Single (09/25/2024 10:49 AM CDT) Anatomical [...] PALMA Study Date: 09/25/2024 10:08am Pat. NO: [id number] Referring MD: SORAIDA MOYER Site: Delivery Driver/Supervisor: Deisi Mcconnell RDMS : 1995 Age: 29 [...] 1 lb 3 oz EFW by Hadlock ([id number]) Head / Face / Neck Biometry: Warehouse Helper 4.9 mm CM 4.7 mm Nasal bone 6.6 mm ANATOMY ----- The following structures appear normal: Head / Neck Cranium. Head size. Head shape. Lateral ventricles. Choroid plexus. Midline falx. Cavum septi pellucidi. Cerebellum. Cisterna magna. Parenchyma. Thalami. Vermis. Neck. Face Lips. Profile. Nose. Maxilla. Mandible. Orbits. Lens. Heart / Thorax 4-chamber view. RVOT view. LVOT view. 3-vessel view. 3-xphmur-noqfwmn view. Situs. Aortic arch view. Bicaval view. [...] the patient (reviewing medical records/tests), in direct tofg-rt-hjzm contact with the patient during the visit counseling and discussing the plan of care and documenting the visit in the electronic medical record. Procedure Note Joleen Traylor MD - 09/25/2024 Comprehensive ----- Pat. Name: WENDI PALMA Study Date: 09/25/2024 10:08am Pat. 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 View: Sufficient ----- Martinez . Number of fetuses: 1 DATING ----- DateDetailsGest. age CAROLYNN LMP w + 3 d 01/26/2025 Previous U/S 06/20/2024 GA, GA8 w + 3 d22 w + 2 d 01/27/2025 U/S 5based upon AC, BPD, Femur, HC22 w + [...] EFW (lb,oz) 1 lb 3oz EFW by Hadlock([id number]) Head / Face / Neck Biometry: Warehouse Helper 4.9mm CM 4.7mm Nasal bone 6.6mm ANATOMY ----- The following structures appear normal: Head / Neck Cranium. Head size. Head shape.Lateral ventricles. Choroid plexus. Midline falx. Cavum septi pellucidi.Cerebellum. Cisterna magna. Parenchyma. Thalami. Vermis. Neck. Face Lips. Profile. Nose. Maxilla.Mandible. Orbits. Lens. Heart / Thorax 4-chamber view. RVOT view. LVOT view.3-vessel view. 0-ufpovv-bbwdrpf view. Situs. Aortic arch view. Bicavalview. Ductal [...] see the patient(reviewing medical records/tests), in direct thpt-xp-pbox contact with the patient during the visitcounseling [...] for gestational age. No placentalakes seen us Soraida Moyer APRN [facility] US ORDERABLES Edit ed Result - Final documented in this encounter Visit Diagnoses Diagnosis related condition, antepartum- Primary related condition, antepartum documented in this encounter Care Teams Content Analyst Relationship Specialty Start Date End Date Charanjit Lake MD [facility] [address]. [place] [address] PCP - General Family Medicine 09/15/24 documented as of this encounter
--- OUTSIDE RECORDS SUMMARY | 2024-09-30 10:55 | XMS_ITS | Encounter Summary ---
Author Organization [place] Address [address] [place] [address] Care Team Providers Care Manager Fund Name Role Phone Charanjit Lake MD Primary Care Provider + [phone] Reason for Visit * Reason Comments Ultrasound L2- Malformation of placenta Encounter Details Date Type Department Care Team (Late st Contact Info) Description 09/18/2024 PRE VISIT [facility] [place] [address] [place] [address] Lennie Cano RN Ultrasound (L2- Malformation of placenta) Social History Tobacco Use Types Packs/Day Years [...] documented as of this encounter Visit Diagnoses Not on filedocumented in this encounter Care Teams Manager Fund Relationship Specialty Start Date End Date Charanjit Lake MD [facility] [address]. [address] [place] [address] PCP - General Family Medicine 09/15/24 documented as of this encounter
--- OUTSIDE RECORDS SUMMARY | 2024-09-30 10:55 | XMS_ITS | Encounter Summary ---
Author Organization [place] Address [address] [place] [address] Care Team Providers Care Wood Pole Treater Name Role Phone Charanjit Lake MD Primary Care Provider + [phone] Encounter Details Date Type Department Care Team (Late st Contact Info) Description 09/15/2024 Medical Correspondence [facility] [employer] Information Management [address] [place] [address] Scan, Non-Provider Social History Tobacco Use Types Packs/Day Years Used Date Smoking Tobacco: Never Assessed Comments Unknown Sex and Gender Information Value Date Recorded Sex Assigned at Not on file Legal Sex Female 3:19 PM CDT Gender Identity Not on file Sexual Orientation Not on file documented as of this encounter Plan of Treatment Not on file documented as of this encounter Visit Diagnoses Not on filedocumented in this encounter Care Teams Wood Pole Treater Relationship Specialty Start Date End Date Charanjit Lake MD [facility] [address], [place] [address] PCP - General Family Medicine 09/15/24 documented as of this encounter
--- OUTSIDE RECORDS SUMMARY | 2024-09-30 10:56 | XMS_ITS | Clinical Summary ---
Author Organization [facility] Address [address] [place] [address] Care Team Providers Care Hydraulic Lift Operator Name Role Phone Charanjit Lake MD Primary Care Provider + [phone] Encounters Date Type Department Care Team Description 09/25/2024 10:45 AM CDT Office Visit [facility] Maternal Medicine [facility] [address] [place] [phone] Soraida Moyer APRN CNM Babbar, Shilpa, MD Suspected problem with placenta not found (Primary Dx); Screening, , for anatomic survey 09/25/2024 9:56 AM CDT - 09/25/2024 11:59 PM CDT Hospital Encounter [facility] Maternal Medicine [facility] [address] [place] [phone] Soraida Moyer APRN CNM Babbar, Shilpa, MD related condition, antepartum Discharge Disposition: Home or Self Care 09/25/2024 Travel 09/20/2024 Travel 09/18/2024 PRE VISIT [facility] Maternal Medicine [facility] [address] [place] [phone] Lennie Cano RN Ultrasound (L2- Malformation of placenta) 09/18/2024 Transcribe Orders [facility] Maternal Medicine [facility] [address] [place] [phone] Ruuska, Senja, LUGGER CNM related condition, antepartum (Primary Dx) 09/15/2024 Medical Correspondence [facility] [address] [place] [phone] Scan, Non-Provider from Last 3 Months Social History Tobacco Use Types Packs/Day Years Used Date Smoking Tobacco: Never Assessed Estimated Date of Delivery Comme nts Yes 01/26/2025 Based on last me nstrual period of 04/21/2024 Sex and Gender Information Value Date Recorded Sex Assigned at Not on file Legal Sex Female 3:19 PM CDT Gender Identity Not on file Sexual Orientation Not on file Plan of Treatment Health Maintenance Due Date Last Done Comments ADVANCE CARE PLANNING 1993 ANNUAL REVIEW OF HM ORDERS 1993 YEARLY PREVENTIVE VISIT 1996 HIV SCREENING 2008 HEPATITIS C SCREENING 07/25/2011 HEPATITIS B VACCINE (1 of 3 - 19+ 3-dose series) 2012 PAP 2014 COVID-19 VACCINE ( - 2023-2 5 season) 2023 PHQ-2 (once per calendar year) 2024 MATERNAL SCREENING DISCUSSION 06/30/2024 OBGCT (OB) 10/06/2024 INFLUENZA VACCINE (#1) 2024 RSV VACCINE (1 - Risk 1-dose series) 12/01/2024 DTAP/TDAP/TD VACCINE (4 - Td or Tdap) 05/08/2031 05/08/2021, 04/11/2015, 06/22/2005 ZOSTER VACCINE (1 of 2) 07/25/2043 HPV VACCINE Completed 10/03/2018, 05/06/2018, 04/05/2018 MENINGITIS VACCINE Aged Out No longer eligible based on patient's age to complete this topic PNEUMOCOCCAL VACCINE: PEDIATRICS (0 to 5 YEARS) AND AT-RISK PATIENTS (6 to 49 YEARS) Aged Out No longer eligible b ased on patient's age to complete this topic Procedures Procedure Name Priority Date/Time Associated Diagnosis Comments [facility] US COMPREHENSIVE SINGLE Routine 09/25/2024 10:49 AM CDT related condition, antepartum from Last 3 Months Results * [facility] US Comprehensive Single (09/25/2024 10:49 [...] PALMA Study Date: 09/25/2024 10:08am Pat. NO: [id number] Referring MD: SORAIDA MOYER Site: Die Maintenance: Deisi Mcconnell RDMS : 1995 Age: 29 [...] 1 lb 3 oz EFW by Hadlock ([id number]) Head / Face / Neck Biometry: Printing Assistant 4.9 mm CM 4.7 mm Nasal bone 6.6 mm ANATOMY ----- The following structures appear normal: Head / Neck Cranium. Head size. Head shape. Lateral ventricles. Choroid plexus. Midline falx. Cavum septi pellucidi. Cerebellum. Cisterna magna. Parenchyma. Thalami. Vermis. Neck. Face Lips. Profile. Nose. Maxilla. Mandible. Orbits. Lens. Heart / Thorax 4-chamber view. RVOT view. LVOT view. 3-vessel view. 8-rmpeeq-gqcnqlv view. Situs. Aortic arch view. Bicaval view. [...] the patient (reviewing medical records/tests), in direct vyvo-ja-pdso contact with the patient during the visit counseling and discussing the plan of care and documenting the visit in the electronic medical record. Procedure Note Joleen Traylor MD - 09/25/2024 Comprehensive ----- Pat. Name: WENDI PALMA Study Date: 09/25/2024 10:08am Pat. NO: [id number] Referring MD: SORAIDA MOYER Site: Die Maintenance: Deisi Mcconnell RDMS : 1995 Age: 29 [...] EFW (lb,oz) 1 lb 3oz EFW by Hadlock([id number]) Head / Face / Neck Biometry: Printing Assistant 4.9mm CM 4.7mm Nasal bone 6.6mm ANATOMY ----- The following structures appear normal: Head / Neck Cranium. Head size. Head shape.Lateral ventricles. Choroid plexus. Midline falx. Cavum septi pellucidi.Cerebellum. Cisterna magna. Parenchyma. Thalami. Vermis. Neck. Face Lips. Profile. Nose. Maxilla.Mandible. Orbits. Lens. Heart / Thorax 4-chamber view. RVOT view. LVOT view.3-vessel view. 9-hzlapy-actgbrn view. Situs. Aortic arch view. Bicavalview. Ductal [...] see the patient(reviewing medical records/tests), in direct opkp-uh-dvom contact with the patient during the visitcounseling [...] normal for gestational age. No placentalakes seen Soraida Moyer [facility]N [facility] ORDERABLES Edit ed Result - Final from Last 3 Months Insurance [employer] [facility] Care Teams Hydraulic Lift Operator Relationship Specialty Start Date End Date Charanjit Lake MD [facility] 1981. . [place] [address] PCP - General Family Medicine 09/15/24
--- OUTSIDE RECORDS SUMMARY | 2024-09-30 10:56 | XMS_ITS | Encounter Summary ---
Author Organization [facility] Address [address] [place] [address] Care Team Providers Care Verifier Name Role Phone Charanjit Lake MD Primary Care Provider + [phone] Encounter Details Date Type Department Care Team (Latest Contact Info) Description 09/25/2024 Travel Social History Tobacco Use Types Packs/Day Years [...] on filedocumented in this encounter Care Teams Verifier Relationship Specialty Start Date End Date Charanjit Lake MD [facility] 1981. [place] [address] PCP - General Family Medicine 09/15/24 documented as of this encounter
--- OUTSIDE RECORDS SUMMARY | 2024-09-30 10:56 | XMS_ITS | Encounter Summary ---
Author Organization [facility] Address [address] [place] [address] Care Team Providers Care Billing Analyst Name Role Phone Charanjit Lake MD Primary Care Provider + [phone] Encounter Details Date Type Department Care Team (Latest Contact Info) Description 09/20/2024 Travel Social History Tobacco Use Types Packs/Day [...] on filedocumented in this encounter Care Teams Billing Analyst Relationship Specialty Start Date End Date Charanjit Lake MD [facility] [place] [address] [address] PCP - General Family Medicine 09/15/24 documented as of this encounter
[2024-09-30 11:05] VITALS: BP 116/75; PULSE 86; RESP 16; TEMP 36.6; O2SAT 99; BMI 23.8
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
[2024-09-30] MEDS: ACETAMINOPHEN 500 MG TABLET 1000 MG PO (12:00)
[2024-09-30 12:15] VITALS: PULSE 69; O2SAT 100
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
== END 2024-09-30 13:58 | disposition home or self-care (01) ==
LOC: ED 12:47 → OB OUT 13:09 → OB 13:10
PROVIDERS: Emergency Provider Family Medicine; PCP Family Medicine; Visit Provider Advanced Practice Midwife
DX: M54.2 Cervicalgia (principal); O47.02 False labor before 37 completed weeks of gestation, second trimester; Z3A.23 23 weeks gestation of pregnancy; V53.5XXA Driver of pick-up truck or van injured in collision with car, pick-up truck or van in traffic accident, initial encounter
CPT/HCPCS: 59025; 72040; 99284; G0463; A9270

== ENCOUNTER 2024-11-10 09:55 | Outpatient (CLI) | payer BC, SELFPAY | END 2024-11-10 09:56 | disposition home or self-care (01) | LOC: NFLDREF 09:55 | PROVIDERS: PCP Family Medicine; Visit Provider Advanced Practice Midwife | DX: Z34.83 Encounter for supervision of other normal pregnancy, third trimester (principal); Z67.41 Type O blood, Rh negative | CPT/HCPCS: 86592; 86850; J2791 ==

== ENCOUNTER 2024-12-27 11:05 | Outpatient (CLI) | payer BC, SELFPAY ==
[2024-12-28 11:52] LABS: Strep B DNA Probe Negative (Negative)
[2024-12-28 12:03] LABS: Strep B Susceptibility Needed? No
== END 2024-12-27 11:06 | disposition home or self-care (01) ==
LOC: NFLDREF 11:05
PROVIDERS: PCP Family Medicine; Visit Provider Advanced Practice Midwife
DX: Z34.93 Encounter for supervision of normal pregnancy, unspecified, third trimester (principal)
CPT/HCPCS: 87081; 87653

== ENCOUNTER 2025-01-30 14:40 | Outpatient (CLI) | payer BC, SELFPAY ==
[2025-01-30 14:58] VITALS: BP 134/83; PULSE 81
[2025-01-30 15:02] VITALS: RESP 17; TEMP 36.8
--- NOTE | 2025-01-30 17:38 | PC.OBNST ---
NST Note NST Note Start: 01/30/25 14:45 Freq: ONCE Status: Active Protocol: Document 01/30/25 14:45 [facility] (Rec: 01/30/25 17:37 [facility] [id number]) NST Note 2 Para (# of births) 1 EDC 01/26/25 Gestational Age In 40 Weeks & 4 Days Weeks & Days Patient Presented Contractions/cramping with Complaint(s) of Reactive Yes Appropriate for Yes Gestational Age RN Case RN Date 01/30/25 Reactive Yes Appropriate for Yes Gestational Age RN Freddie RN Date 01/30/25 OB NST charge Yes Complete NST Note Yes via Write Note The provider's electronic signature indicates the NST is reactive/appropriate for gestational age. *Note to provider: If an addendum is required, open the patient's chart and click on the note under the Nurse/Allied Health tab.
== END 2025-01-30 18:05 | disposition home or self-care (01) ==
LOC: OB OUT 14:40 → OB 14:41
PROVIDERS: PCP Family Medicine; Visit Provider Advanced Practice Midwife
DX: O47.1 False labor at or after 37 completed weeks of gestation (principal); Z3A.40 40 weeks gestation of pregnancy
CPT/HCPCS: 59025; G0463

== ENCOUNTER 2025-01-30 21:04 | Inpatient (IN) | payer BC, SELFPAY ==
[2025-01-30 20:04] VITALS: BP 141/82; PULSE 77; PULSE 78; O2SAT 98
[2025-01-30 20:25] VITALS: BP 134/68; PULSE 73
[2025-01-30 21:10] VITALS: RESP 16; TEMP 36.9
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
[2025-01-30 22:00] VITALS: BP 133/77; PULSE 88; RESP 16; TEMP 36.6; O2SAT 99
[2025-01-30 22:03] VITALS: BMI 26.5
[2025-01-30 23:00] VITALS: BP 120/78; PULSE 80; RESP 16; TEMP 36.6
[2025-01-31] VITALS (15 sets, daily range): BP systolic 111–148; BP diastolic 61–88; PULSE 70–99; RESP 16–20; TEMP 36.4–36.7; O2SAT 98–99
[2025-01-31 04:19] LABS: Hematocrit* 37.5 % (33.0-51.0); Hemoglobin* 12.8 gm/dL (12.0-16.0); Mean Corpuscular HGB Conc 34 gm/dL (32-36); Mean Corpuscular Hemoglobin 30 pg (26-34); Mean Corpuscular Volume 87 fL (80-100); Red Blood Count* 4.31 m/uL (4.00-5.20); White Blood Count* 19.44 K/uL (4.50-11.00)
[2025-01-31 04:25] LABS: Slide Review Reflex No
[2025-01-31 04:35] LABS: Alanine Aminotransferase* 18 U/L (4-35); Aspartate Amino Transferase* 30 U/L (12-35); Blood Urea Nitrogen* 13 mg/dL (5-24); Creatinine* 0.6 mg/dL (0.5-1.5); Est. Creatinine Clearance* 166.64; Estimated Glomerular Filt Rate 123 ml/min
--- NOTE | 2025-01-31 04:46 | W.PM.OBVAGDE ---
OB Procedure Vag Delivery Mother Details Mother Details: The patient is a 29 year-old, 4, now Para 2, admitted on 01/30/25 at 40.5 weeks gestation that presented in spontaneous labor. : 4 Para: 2 Weeks Gestation: 40.5 Admission Date: 01/30/25 Additional Details Amniotic Membrane Status: AROM Amniotic Membrane Rupture Date: 01/30/25 Amniotic Membrane Rupture Time: 21:06 Amniotic Membrane Fluid Description: Clear Analgesia/Anesthesia Type: None Waterbirth: Yes Pitcoin: No Intrapartal Events: Labor Augmentation Delivery augmentation: rupture of membranes Labor Onset: 22:00 Complete: 02:30 Pushin:30 Heart: heart tones during second stage were reassuring via intermittent monitoring. Delivery Details Delivery Date: 01/31/25 Delivery Time: 02:42 Route of delivery: Infant Gender: Male Infant Viability: Alive; Heart Rate Present Position at Delivery: OA Delivery Details: Patient was admitted for spontaneous onset of labor and progressed with augmentation with AROM of clear fluid at 2106. Patient was assumed complete with pushing at 2200. Head delivered in the tub but mother then lifted her butt above the water. She was assisted to standing and squatted to deliver body. of a viable male at 0242, delivery from head to body was 50 seconds but due to maternal positioning. Vertex delivered OA. No nuchal cord or shoulder. Body delivered easily and without incident. Infant passed to mothers abdomen with a vigorous cry. Cord was clamped and cut at > 5 minutes. APGARS were 7 at one minute and 9 at five minutes respectively. Mouth was bulb suctioned. Intact placenta with a 3 vessel cord delivered spontaneously at 0253. Fundus firm. Small right periurethral, not repaired. QBL 100 + EBL 200 cc. Mother and baby stable; mother plans to breastfeed. Infant weight pending. 1 Minute Interval Total Score: 7 5 Minute Interval Total Score: 9 Additional Details Shoulder Dystocia: No Placenta Delivery Time: 02:53 Placental Delivery Description: Spontaneous Delivery repair: Vicryl Procedure Done: Global Blood Loss: 300 Laceration: Periurethral - 1st Degree (not repaired) Blood Loss Measurement Type: QBL Bakri Used: No Sponge/Need Count Correct: No Cord Vessel Description: 3 Vessels Event Summary Status: Mother and were stable after delivery. Wendi had an elevated BP in recovery for her 2nd Mild range BP meeting criteria for GHTN. Labs ordered. She does not currently have an IV, discussed we would place if her BP's remained mild range. Since then, she has had normotensive blood pressures. Disposition: floor
[2025-02-01 00:05] VITALS: BP 113/73; PULSE 86; RESP 20; TEMP 36.7; O2SAT 98
[2025-02-01 05:23] VITALS: BP 124/82; PULSE 90; RESP 20; TEMP 36.7; O2SAT 98
[2025-02-01 07:55] VITALS: BP 121/78; PULSE 76; RESP 16; TEMP 36.4; O2SAT 100
--- NOTE | 2025-02-01 08:40 | PM.OBDSVD1 ---
DS: Providers Provider Time Seen by Provider: 08:40 Date Seen: 02/01/25 Date of admission: 01/30/25 21:04 Primary care physician: Charanjit Lake MD Admitting Clinician: Nataliya Sepulveda CNM Attending Physician on discharge: Giselle Diane CNM Date of Discharge: 02/01/25 DS: Diagnosis Discharge Diagnosis (1) care and examination of lactating mother: Status: Acute Problem details: Follow up in clinic with CNM at 2 and 6wks PP (2) Gestational hypertension: Status: Acute Problem details: Plan BP check with RN on day 3-5 PP with baby's initial clinic visit. (3) Rh negative, antepartum: Status: Acute Problem details: RhoGAM ordered. Exam Narrative: Exam Narrative: GENERAL APPEARANCE:? normal affect, alert, no distress? MOOD:? appropriate? CHEST:? clear to auscultation and percussion? HEART:? regular rate and rhythm? BREASTS: soft, nontender, no erythema, nipples intact? ABDOMEN:? soft, non-tender the uterine fundus is firm and is appropriate for the stage of recovery.? PERINEUM:? mild edema of the perineum, intact.? EXTREMITIES:? normal and no edema? Const: Vital Signs, click to edit/add: Vital Signs - 24 hr 01/31/25 12:00 01/31/25 16:00 01/31/25 20:24 Temperature 97.7 F 98.0 F 97.9 F Pulse Rate [Blood Pressure Cuff] 78 97 93 Respiratory Rate 16 16 20 Blood Pressure [Ri ght Arm] 120/82 117/82 116/82 Pulse Oximetry 98 99 Oxygen Delivery Me thod Room Air Room Air 02/01/25 00:05 02/01/25 05:23 02/01/25 07:55 Temperature 98.1 F 98.1 F 97.5 F L Pulse Rate [Blood Pressure Cuff] 86 90 76 Respiratory Rate 20 20 16 Blood Pressure [Ri ght Arm] 113/73 124/82 121/78 Pulse Oximetry 98 98 100 Oxygen Delivery Me thod Room Air Room Air Room Air OB - DS: Summary Hospital Course Hospital Course: Patient has no complaints. No active bleeding. Doing well. She is requesting discharge home.? ? Patient is a 29year old, G 4 now P 2021? admitted on 01/30/2025 at 40 Weeks, 4 Days gestation for labor.? She had an uncomplicated vaginal delivery.? She delivered a viable male .?She was diagnosed with gHTN during the recovery period, preeclampsia labs were drawn and WNL. We discussed the option to take HCTZ x 7 days to reduce risk of BP rise on PP day 3-5 during fluid shift, pt declines Rx, is agreeable to BP check with RN when baby comes in for initial peds checkup?on day 3-5 of life. Peripartum Data delivery method: Vaginal Laceration description: None complications: none [place] Infant Gender: Male Discharge Plan: Home Status at Discharge Functional status at discharge: independent ambulation Overall status at discharge: patient is progressing back to baseline Time Spent with Patient Time attestation: Total time spent providing and/or coordinating discharge services: Time spent: Greater than 30 minutes Discharge Plan Discharge Disposition: Home, Self-Care Date of Admission: 01/30/25 21:04 Attending Provider on Discharge: Giselle Diane Primary Care Provider: Charanjit Lake Condition: Stable Anticipated Discharge Date/Time: 02/01/25 08:47 Discharge Medications: Continued One-A-Day -1 27 mg iron- 800 mcg-235 mg capsule 1 cap PO DAILY Discontinued cephalexin 500 mg capsule 500 mg PO Q6H Discharge Orders: Discharge Order (Routine); Ordered 02/01/25 Ordered By: Giselle Diane Patient Education: OB Vaginal/Breast Feeding Additional Instructions: Discharge instructions were reviewed with the patient including signs and symptoms of infection and home going medications.? Lifting Restrictions: 20 pounds for 6? weeks? ?? Off Work or School for 6 weeks.? ?? Symptoms to report to doctor:?-Bleeding that saturates more than one pad per hour? -Passing clots larger than the size of a golf ball? -Pain not relieved by prescribed medication? -Fever above 100.4 degrees Fahrenheit? -A foul vaginal odor? -Difficulty in emotions, mood and functions? -Thoughts of hurting yourself and/or ? -Painful, reddened area in your breast? -Any drainage, redness or tenderness in your IV/epidural site? -Severe headache that doesn't improve after taking medications? -Changes in vision, including temporary loss of vision, blurred vision, and/or light sensitivity? -Upper abdominal pain (usually under ribs on the right side)? -Decrease in urination or painful, frequent urinating? -Chest pain? -Shortness of breath? -Tenderness or pain with redness and/swelling in the calf(s) of your leg? ?? Virtual or nurse visit in the clinic for a blood pressure check in 3-5 days.? Follow Up in clinic in 2 and 6 weeks.? ?? consultation services are available to all mothers and babies for the first year after delivery.? To make an appointment, please call [phone].? Activity Level: Activity as Tolerated Discharge Diet: Regular Follow Up Appointments: Charanjit Lake MD [Primary Care Provider, Family Practice] Giselle Diane CNM [Certified Nurse Russian History Professor, Russian History Professor] Forms: MyHealth Info Instructions
== END 2025-02-01 11:49 | disposition home or self-care (01) | DRG 560 ==
LOC: OB OUT 22:06 → OB 22:06
PROVIDERS: Admitting Provider Advanced Practice Midwife; PCP Family Medicine; Visit Provider Advanced Practice Midwife
DX: O48.0 Post-term pregnancy (principal); O99.344 Other mental disorders complicating childbirth; F41.9 Anxiety disorder, unspecified; F32.A Depression, unspecified; O26.893 Other specified pregnancy related conditions, third trimester; Z67.41 Type O blood, Rh negative; O99.892 Other specified diseases and conditions complicating childbirth; R73.03 Prediabetes; O70.0 First degree perineal laceration during delivery; O71.82 Other specified trauma to perineum and vulva; O13.5 Gestational [pregnancy-induced] hypertension without significant proteinuria, complicating the puerperium; Z37.0 Single live birth; Z3A.40 40 weeks gestation of pregnancy
CPT/HCPCS: 36415; 82565; 84450; 84460; 84520; 85027; 86592; G0463

== ENCOUNTER 2025-03-27 14:18 | Outpatient (CLI) | payer BC, SELFPAY ==
[2025-03-29 17:04] LABS: HPV Source Cervix
[2025-04-02 09:05] LABS: Pap Test Digital Imaging Done
== END 2025-03-27 14:19 | disposition home or self-care (01) ==
PROVIDERS: PCP Family Medicine; Visit Provider Registered Nurse
DX: Z11.51 Encounter for screening for human papillomavirus (HPV) (principal); Z12.4 Encounter for screening for malignant neoplasm of cervix
CPT/HCPCS: 87624; 87625; 88141; 88142; 88175